=== PATIENT | female | born 1985 | race Caucasian/White ===

== ENCOUNTER 2017-09-25 17:07 | Emergency (ER) | payer MEDICARE, MEDICAID ==
--- NOTE | 2017-09-25 19:21 | EDM.PDOC ---
ED HPI GENERAL MEDICAL PROBLEM - General Chief Complaint: Abdominal Pain Stated Complaint: ABD PAIN,[place] Time Seen by Provider: 09/25/17 19:00 Source of Information: Reports: Patient, Old Records, Other (staff from [facility]) - History of Present Illness INITIAL COMMENTS - FREE TEXT/NARRATIVE: Patt Espinoza is a 31 year old female with Dev Delays, BPAD and obesity who was recently discharged yesterday from [facility] for managment of ITP. She received IVIG and 4 days of Dexamethasone, discharged yesteday. Last evening, she developed some midline crampy pain without radiation. This am, pain remained intermittent, associated with some diarrheal stools x 2. She did manage to eat bkfast and lunch, but did not feel hungry this evening. Pain remaines crampy, midline, supraumbilical, and nonradiating. Staff has provided tylenol for sxs. There is some loss of appetite, but no nausea, vomiting, fever , voiding sxs chills or sweats. Middle Abdomen Pain Score (Numeric/FACES): 2 - Related Data Allergies Allergy/AdvReac Type Severity Reaction Status Date / Time amoxicillin Allergy Cannot Verified 09/25/17 18:07 Remember diphenhydramine Allergy Cannot Verified 09/25/17 18:07 [From Benadryl] Remember latex Allergy Rash Verified 09/25/17 18:07 Home Meds: Home Meds ARIPiprazole [Aripiprazole] 15 mg PO DAILY 09/25/17 [History] ClonazePAM [KlonoPIN] 0.5 mg PO BID 09/25/17 [History] FLUoxetine HCl [Fluoxetine HCl] 40 mg PO BEDTIME 09/25/17 [History] Lactase [Lactose Fast Acting] 9,000 unit PO DAILY 09/25/17 [History] Polyethylene Glycol 3350 [Miralax] 17 gm PO DAILY 09/25/17 [History] busPIRone [Buspar] 7.5 mg PO BID 09/25/17 [History] cloNIDine [Catapres] 0.1 mg PO TID 09/25/17 [History] medroxyPROGESTERone [Depo-Provera] 1 injection IM Q3M 09/25/17 [History] Past Medical History Respiratory History: Reports: Asthma, Other (See Below) (lactose intolerance) Gastrointestinal History: Reports: Chronic Constipation, GERD Psychiatric History: Reports: Bipolar, Depression, Developmental Delay, Other ( See Below) (oppositional defiant disorder, adjustment disorder) Endocrine/Metabolic History: Reports: Diabetes, Type II Hematologic History: Reports: Idiopathic Thrombocytopenia Social & Family History - Family History Family Medical History: Noncontributory - Tobacco Use Smoking Status *Q: Never Smoker - Caffeine Use Caffeine Use: Reports: None - Recreational Drug Use Recreational Drug Use: No ED ROS GENERAL - Review of Systems Review Of Systems: See Below Constitutional: Reports: Malaise, Decreased Appetite HEENT: Reports: No Symptoms Respiratory: Reports: No Symptoms Cardiovascular: Reports: No Symptoms Endocrine: Reports: No Symptoms GI/Abdominal: Reports: Abdominal Pain, Diarrhea, Decreased Appetite : Reports: No Symptoms Musculoskeletal: Reports: No Symptoms Skin: Reports: Rash Neurological: Reports: No Symptoms Psychiatric: Reports: Anxiety Hematologic/Lymphatic: Reports: Easy Bruising Immunologic: Reports: No Symptoms ED EXAM, GI/ABD - Physical Exam Exam: See Below Exam Limited By: No Limitations General Appearance: Alert, WD/WN, No Apparent Distress, Anxious, Obese Eyes: Bilateral: Normal Appearance, EOMI Ears: Normal External Exam Nose: Normal Inspection Throat/Mouth: Normal Inspection, Normal Lips, Normal Gums, Normal Oropharynx Head: Normocephalic Neck: Normal Inspection, Supple, Non-Tender, Full Range of Motion Respiratory/Chest: Lungs Clear, Normal Breath Sounds, Chest Non-Tender Cardiovascular: Normal Peripheral Pulses, Regular Rate, Rhythm, No JVD, No Murmur GI/Abdominal Exam: Normal Bowel Sounds, Soft, No Organomegaly, No Distention, No Mass, Tender (mild tenderness midline above umbilicus) Back Exam: Normal Inspection Extremities: Normal Range of Motion, Non-Tender, Pedal Edema Neurological: Alert, Oriented, CN II-XII Intact, No Motor/Sensory Deficits Psychiatric: Normal Affect, Anxious Skin Exam: Warm, Dry, Ecchymosis, Petechiae Lymphatic: No Adenopathy Course - Vital Signs Text/Narrative:: Following assessment at the [facility] ED, screening labwork revealed CBC Hgb 12.7 gm , WBC 10,000, plts 52,000; the nonfasting CMP noted BS 127 mg%; the UA was abnormal with WBCs>100, RBC full, and bact mod. A UC was set up. She will be started on Septra DS tonight. Last Recorded V/S: Last Vital Signs Temp 37.6 C 09/25/17 19:45 Pulse 89 09/25/17 19:45 Resp 19 09/25/17 19:45 BP 98/45 L 09/25/17 19:45 Pulse Ox 99 09/25/17 19:45 - Orders/Labs/Meds Orders: Active Orders 24 hr Category Date Time Status CULTURE URINE [RM] Stat Lab 09/25/17 18:15 Received HCG QUALITATIVE,URINE [URCHEM] Stat Lab 09/25/17 18:15 Ordered UA W/MICROSCOPIC [URIN] Stat Lab 09/25/17 18:15 Ordered Labs: Laboratory Tests 09/25/17 09/25/17 09/25/17 Range/Units 18:07 18:07 18:07 WBC 10.0 (4.5-12.0) X10-3/uL RBC 3.94 (3.23-5.20) x10(6)uL Hgb 12.7 (11.5-15.5) g/dL Hct 36.5 (30.0-51.3) % MCV 92.6 (80-96) fL MCH 32.2 (27.7-33.6) pg MCHC 34.8 (32.2-35.4) g/dL RDW 12.7 (11.5-15.5) % Plt Count 52 L (125-369) X10(3)uL MPV 8.0 (7.4-10.4) fL Neut % (Auto) 84.3 H (46-82) % Lymph % (Auto) 8.2 L (13-37) % [place] % (Auto) 5.5 (4-12) % Eos % (Auto) 1 (1.0-5.0) % Baso % (Auto) 1 (0-2) % Neut # (Auto) 8.4 H (1.6-8.3) # Lymph # (Auto) 0.8 (0.6-5.0) # [place] # (Auto) 0.6 (0.0-1.3) # Eos # (Auto) 0.1 (0.0-0.8) # Baso # (Auto) 0.1 (0.0-0.2) # PT 11.1 (8.7-11.1) INR 1.14 H (0.89-1.13) Sodium 138 (135-145) mmol/L Potassium 3.6 (3.5-5.3) mmol/L Chloride 104 (100-110) mmol/L Carbon Dioxide 26 (21-32) mmol/L BUN 22 H (7-18) mg/dL Creatinine 1.0 (0.55-1.02) mg/dL Est Cr Clr Drug Dosing TNP Estimated GFR (MDRD) > 60 (>60) BUN/Creatinine Ratio 22.0 H (9-20) Glucose 129 H (80-116) mg/dL Calcium 7.7 L (8.6-10.2) mg/dL Total Bilirubin 0.5 (0.1-1.3) mg/dL AST 17 (5-25) IU/L ALT 91 H (12-36) U/L Alkaline Phosphatase 50 L (56-112) IU/L Total Protein 7.4 (6.0-8.0) g/dL Albumin 2.6 L (3.5-5.2) g/dL Globulin 4.8 g/dL Albumin/Globulin Ratio 0.5 Amylase 48 (25-115) U/L Urine Color (YELLOW) Urine Appearance (CLEAR) Urine pH (5.0-6.5) Ur Specific [place] (1.010-1.025) Urine Protein (NEGATIVE) mg/dL Urine Glucose (UA) (NEGATIVE) mg/dL Urine Ketones (NEGATIVE) mg/dL Urine Occult Blood (NEGATIVE) Urine Nitrite (NEGATIVE) Urine Bilirubin (NEGATIVE) Urine Urobilinogen (NEGATIVE) mg/dL Ur Leukocyte Esterase (NEGATIVE) Urine RBC (0) Urine WBC (0) Ur Squamous Epith Cells (NS,R,O) Urine Bacteria (NS) Urine HCG, Qual (NEGATIVE) 09/25/17 09/25/17 Range/Units 18:15 18:15 WBC (4.5-12.0) X10-3/uL RBC (3.23-5.20) x10(6)uL Hgb (11.5-15.5) g/dL Hct (30.0-51.3) % MCV (80-96) fL MCH (27.7-33.6) pg MCHC (32.2-35.4) g/dL RDW (11.5-15.5) % Plt Count (125-369) X10(3)uL MPV (7.4-10.4) fL Neut % (Auto) (46-82) % Lymph % (Auto) (13-37) % [place] % (Auto) (4-12) % Eos % (Auto) (1.0-5.0) % Baso % (Auto) (0-2) % Neut # (Auto) (1.6-8.3) # Lymph # (Auto) (0.6-5.0) # [place] # (Auto) (0.0-1.3) # Eos # (Auto) (0.0-0.8) # Baso # (Auto) (0.0-0.2) # PT (8.7-11.1) INR (0.89-1.13) Sodium (135-145) mmol/L Potassium (3.5-5.3) mmol/L Chloride (100-110) mmol/L Carbon Dioxide (21-32) mmol/L BUN (7-18) mg/dL Creatinine (0.55-1.02) mg/dL Est Cr Clr Drug Dosing Estimated GFR (MDRD) (>60) BUN/Creatinine Ratio (9-20) Glucose (80-116) mg/dL Calcium (8.6-10.2) mg/dL Total Bilirubin (0.1-1.3) mg/dL AST (5-25) IU/L ALT (12-36) U/L Alkaline Phosphatase (56-112) IU/L Total Protein (6.0-8.0) g/dL Albumin (3.5-5.2) g/dL Globulin g/dL Albumin/Globulin Ratio Amylase (25-115) U/L Urine Color [place] (YELLOW) Urine Appearance Slightly cloudy (CLEAR) Urine pH 7.0 H (5.0-6.5) Ur Specific [place] 1.015 (1.010-1.025) Urine Protein 30 H (NEGATIVE) mg/dL Urine Glucose (UA) Normal (NEGATIVE) mg/dL Urine Ketones Negative (NEGATIVE) mg/dL Urine Occult Blood Large H (NEGATIVE) Urine Nitrite Negative (NEGATIVE) Urine Bilirubin Small H (NEGATIVE) Urine Urobilinogen 8 H (NEGATIVE) mg/dL Ur Leukocyte Esterase Moderate H (NEGATIVE) Urine RBC Packed H (0) Urine WBC >100 H (0) Ur Squamous Epith Cells Few H (NS,R,O) Urine Bacteria Moderate H (NS) Urine HCG, Qual Negative (NEGATIVE) Departure - Departure Time of Disposition: 20:06 Disposition: Home, Self-Care 01 Condition: Fair Clinical Impression: Urinary tract infection Qualifiers: Urinary tract infection type: acute cystitis Hematuria presence: with hematuria Qualified Code(s): N30.01 - Acute cystitis with hematuria - Discharge Information *PRESCRIPTION DRUG MONITORING PROGRAM REVIEWED*: Not Applicable *COPY OF PRESCRIPTION DRUG MONITORING REPORT IN PATIENT ALEYDA: Not Applicable Referrals: Jailene Green NP [Primary Care Provider] - Forms: ED Department Discharge - Problem List & Annotations (1) Urinary tract infection SNOMED Code(s): 93050395 Code(s): N39.0 - URINARY TRACT INFECTION, SITE NOT SPECIFIED Status: Acute Current Visit: Yes Annotation/Comment:: UTI. I dispensed Septra DS bid pending results of UC, hydration, and Tylenol for pain sxs. Qualifiers: Urinary tract infection type: acute cystitis Hematuria presence: with hematuria Qualified Code(s): N30.01 - Acute cystitis with hematuria - Problem List Review Problem List Initiated/Reviewed/Updated: Yes - Assessment/Plan Plan: Follow up with PCP.
== END 2017-09-25 20:00 | disposition home or self-care (01) ==
LOC: FB.ED 17:07
DX: N30.01 Acute cystitis with hematuria (principal); E11.9 Type 2 diabetes mellitus without complications; Z88.1 Allergy status to other antibiotic agents; Z91.040 Latex allergy status; Z88.8 Allergy status to other drugs, medicaments and biological substances; Z79.899 Other long term (current) drug therapy
CPT/HCPCS: 36415; 80053; 81001; 81025; 82150; 85025; 85610; 87086; 87088; 87186; 99284